=== PATIENT | female | born 1995 | race Caucasian/White ===

== ENCOUNTER 2017-11-23 07:55 | Day surgery (SDC) | payer OTHER ==
[~2017-11-23 07:55] MED LIST: Buffered Lidocaine 0.9% SYRIN* 5 ML/SYR SYRINGE INTRADERM ONE; Sodium Citrate/Citric Acid* 15 ML UDC PO ONE
[2017-11-23] MEDS ORDERED: Sodium Citrate/Citric Acid* 15 ML UDC ONE (08:07)
[2017-11-23] MEDS ORDERED: Buffered Lidocaine 0.9% SYRIN* 5 ML/SYR SYRINGE ONE (08:07)
[2017-11-23] MEDS ORDERED: Misoprostol TAB* 200 MCG ONE (08:48)
[2017-11-23] MEDS ORDERED: Lidocaine 1% INJ* 10 MG/ML 30 ML SDV ONE (09:15)
[2017-11-23] MEDS ORDERED: fentaNYL* 50 MCG/ML 2 ML VIAL (100 MCG VIAL) ONE ×2 (09:25→10:15)
[2017-11-23] MEDS ORDERED: Lidocaine 2% PF * 5 ML VIAL ONE (09:28)
[2017-11-23] MEDS ORDERED: Propofol* 10 MG/ML 20 ML BTL IV PUSH ONE (09:28)
[2017-11-23] MEDS ORDERED: Ondansetron INJ* 2 MG/ML VIAL IV PRN (10:14)
[2017-11-23] MEDS ORDERED: Naloxone* 0.4 MG/ML 1 ML VIAL IV PRN (10:14)
[2017-11-23] MEDS ORDERED: fentaNYL* 50 MCG/ML 2 ML VIAL (100 MCG VIAL) IV PRN (10:14)
[2017-11-23] MEDS ORDERED: Ibuprofen TAB* 600 MG ONE (10:21)
[2017-11-23 10:57] VITALS: BP 121/90
[2017-11-23] MEDS ORDERED: DOXYcycline CAP(*) 100 MG PO ONE (11:00)
--- NOTE | 2017-11-23 15:38 | OP ---
OPERATIVE REPORT: DATE OF OPERATION: 11/23/17 DATE OF : [birth year] SURGEON: Ana Cristina Tory MD DETACKER: None. ANESTHESIA: Sedation with local paracervical block. PRE-OP DIAGNOSIS: Missed at 7 weeks and 1 day. POST-OP DIAGNOSIS: Missed at 7 weeks and 1 day. OPERATIVE PROCEDURE: Dilation, evacuation and curettage. ESTIMATED BLOOD LOSS: Minimal. URINE OUTPUT: 100 cc of yellow urine. FLUIDS: 400 cc of crystalloid. FINDINGS: Reveals intrauterine contents consistent with productions of conception. COMPLICATIONS: None apparent. DISPOSITION: Stable to recovery room. DESCRIPTION OF PROCEDURE: The patient was counseled preoperatively regarding risks and benefits of t he procedure. Consent form was personally signed with the patient and all questions were answered. The patient was then taken to the operating room. In the operating room, the perineum and vagina were prepped and draped using sterile standard technique. The patient was identified with a Deaver pr otocol for correct procedure, patient, and position. A sterile self-cath was inserted for drainage o f clear yellow urine of 100 cc. This was removed. A sterile speculum was inserted. A paracervical block was used using 1% lidocaine 10 cc. Cervix was visualized, grasped on the anterior lip of the c ervix and dilated to #8 Rutledge dilator. An 8-mm curved suction curette was then applied for complete evacuation of intrauterine contents. A sharp curettage was then performed revealing complete removal of all intrauterine contents. The sterile speculum was removed as well as the single-tooth tenaculu m. Cytotec 800 mcg was placed intravaginally. All sponge, instrument, and blade counts were correct . The patient was taken to the recovery room in stable condition. [id number]/[facility] #: [id number]
== END 2017-11-23 10:58 | disposition home or self-care (01) ==
LOC: OR 07:55
PROVIDERS: ATTEND Obstetrics & Gynecology
DX: O02.1 Missed abortion (principal); F17.210 Nicotine dependence, cigarettes, uncomplicated
CPT/HCPCS: 88305; A9270-GY; J2704; J3010

== ENCOUNTER 2018-06-23 01:37 | Observation (INO) | payer OTHER ==
[2018-06-23] MEDS ORDERED: NS 0.9% 1000 ML* 1,000 ML IV ONE (01:53)
--- NOTE | 2018-06-23 01:57 | ED ---
Syncope/Near Syncope - HPI Summary HPI Summary: This patient is a 22 year old F brought in by ambulance to [facility] s/p syncopal episode that occurred [employer] while she was laying down with her boyfriend. The patient rates the pain 0/10 in severity. Pt states she has been having intermittent episodes of syncope since January of this year. Since January she has had 3 episodes of syncope. She had one last night and was seen at [facility], there she had a head CT that was negative. Before the episodes occur she gets a dizziness as well as some ringing in her ears. She states the episode tonight lasted for a few minutes. Tonight she also experienced numbness in her left hand. She has seen neurology as well as cardiology for these episodes and she has tried several different medications such as ones for anxiety and migraines, without relief. Patient denies incontinence and tongue biting. She states she has a prior dx of vasovagal syncope after being seen by cardiology when she was 18 y/o. - History Of Current Complaint Chief Complaint: EDSyncope Time Seen by Provider: 06/23/18 01:44 Hx Obtained From: Patient Onset/Duration: Lasting Minutes, Resolved Timing: Intermittent Episode Lasting Context: Witnessed Activity At Onset: At Rest Associated Head Trauma: No Associated Signs And Symptoms: Dizzy - Allergies/Home Medications Allergies/Adverse Reactions: Allergies Allergy/AdvReac Type Severity Reaction Status Date / Time latex Allergy Severe Hives Verified 11/23/17 08:12 amoxicillin [From Augmentin] AdvReac Intermediate Nausea And Verified 11/23/17 08:12 Vomiting clavulanic acid AdvReac Intermediate Nausea And Verified 11/23/17 08:12 [From Augmentin] Vomiting naproxen AdvReac Intermediate Nausea And Verified 11/23/17 08:12 Vomiting PMH/Surg Hx/FS Hx/Imm Hx Endocrine/Hematology History: Denies: Hx Blood Transfusions Cardiovascular History: Denies: Hx Peripheral Vascular Disease Respiratory History: Denies: Hx Chronic Bronchitis, Hx Chronic Obstructive Pulmonary Disease (COPD ), Hx Cystic Fibrosis Sensory History: Reports: Hx Contacts or Glasses Opthamlomology History: Reports: Hx Contacts or Glasses Neurological History: Denies: Hx Transient Ischemic Attacks (TIA) Psychiatric History: Reports: Hx Anxiety Infectious Disease History: No Infectious Disease History: Denies: Traveled Outside the [place] in Last 30 Days - Family History Known Family History: Negative: Respiratory Disease, Seizure Disorder - Social History Alcohol Use: None Substance Use Type: Reports: None Smoking Status (MU): Light Every Day Tobacco Smoker Type: Cigarettes Amount Used/How Often: 1 PACK EVERY 3-4 DAYS Length of Time of Smoking/Using Tobacco: 2.5 YEARS Have You Smoked in the Last Year: Yes Review of Systems Negative: Fever ENT: Negative - biting of the tongue Positive: Other - ears ringing Gastrointestinal: Negative - Incontinence Genitourinary: Negative - Incontinence Neurological: Other - dizziness Positive: Numbness - L hand , Syncope All Other Systems Reviewed And Are Negative: Yes Physical Exam - Summary Physical Exam Summary: VITAL SIGNS: Reviewed. GENERAL: Patient is a well-developed and nourished female who is lying comfortable in the stretcher. Patient is not in any acute respiratory distress. HEAD AND FACE: No signs of trauma. No ecchymosis, hematomas or skull depressions. No sinus tenderness. EYES: PERRLA, EOMI x 2, No injected conjunctiva, no nystagmus. EARS: Hearing grossly intact. Ear canals and tympanic membranes are within normal limits. MOUTH: Oropharynx within normal limits. NECK: Supple, trachea is midline, no adenopathy, no JVD, no carotid bruit, no c- spine tenderness, neck with full ROM. CHEST: Symmetric, no tenderness at palpation LUNGS: Clear to auscultation bilaterally. No wheezing or crackles. CVS: Regular rate and rhythm, S1 and S2 present, no murmurs or gallops appreciated. ABDOMEN: Soft, non-tender. No signs of distention. No rebound no guarding, and no masses palpated. Bowel sounds are normal. EXTREMITIES: FROM in all major joints, no edema, no cyanosis or clubbing. NEURO: Alert and oriented x 3. No acute neurological deficits. Speech is normal and follows commands. SKIN: Dry and warm Triage Information Reviewed: Yes Vital Signs On Initial Exam: Initial Vitals Temp Pulse Resp BP Pulse Ox 98.0 F 68 15 135/78 97 06/23/18 01:38 06/23/18 01:38 06/23/18 01:38 06/23/18 01:38 06/23/18 01:38 Vital Signs Reviewed: Yes Diagnostics - Vital Signs Vital Signs Temp Pulse Resp BP Pulse Ox 06/23/18 01:38 98.0 F 68 15 135/78 97 - Laboratory Result Diagrams: 06/23/18 02:15 06/23/18 02:15 Lab Statement: Any lab studies that have been ordered have been reviewed, and results considered in the medical decision making process. - EKG 0211 Cardiac Rate: NL EKG Rhythm: Sinus Rhythm - at 68 BPM Summary of EKG Findings: nml axis, nml intervals, no ischemic changes Course/Dx Course Of Treatment: This patient is a 22 year old F brought in by ambulance to [facility] s/p syncopal episode that occurred [employer] while she was laying down with her boyfriend. The patient rates the pain 0/10 in severity. Pt states she has been having intermittent episodes of syncope since January of this year. Since January she has had 3 episodes of syncope. She had one last night and was seen at [facility], there she had a head CT that was negative. Before the episodes occur she gets a dizziness as well as some ringing in her ears. She states the episode tonight lasted for a few minutes. Tonight she also experienced numbness in her left hand. She has seen neurology as well as cardiology for these episodes and she has tried several different medications such as ones for anxiety and migraines, without relief. Patient denies incontinence and tongue biting. She states she has a prior dx of vasovagal syncope after being seen by cardiology when she was 18 y/o. UA and bloodwork obtained. Bloodwork showed troponin of 0.05. Pt had no CP it could be due to a malignant arrhythmia this also could cause syncope. We discussed the case with Dr. Moore and she has agreed to admit the patient - Diagnoses Provider Diagnoses: Syncope - Physician Notifications Discussed Care of Patient With: Leandra Moore Time Discussed With Above Provider: 03:00 Instructed by Provider To: Admit As Inpatient Discharge - Sign-Out/Discharge Documenting (check all that apply): Patient Departure - admitted - Discharge Plan Condition: Fair Disposition: ADMITTED TO [facility] Referrals: No Primary Care Phys,NOPCP [Primary Care Provider] - - Attestation Statements Document Initiated by Scribe: Yes Documenting Scribe: Terrance Hill Provider For Whom Elizaibe is Documenting (Include Credential): Edgar Topete MD Scribe Attestation: Terrance Dumas , elizaibed for Edgar Topete MD on 06/23/18 at 0300.
[2018-06-23 02:27] LABS: ABS Basophils 0 10^3/ul (0-0.2); ABS Eosinophils 0.1 10^3/ul (0-0.6); ABS Lymphocytes 2.3 10^3/ul (1.0-4.8); ABS Monocytes 0.6 10^3/ul (0-0.8); ABS Neutrophils 4.7 10^3/ul (1.5-7.7); ABS Nucleated RBC 0 10^3/ul; Eosinophil % 1.3 % (0-6); Hematocrit 38 % (35-47); Hemoglobin 12.7 g/dl (12.0-16.0); Lymphocyte % 30.1 % (25-47); Mean Corpuscular HGB Conc 34 g/dl (31-36); Mean Corpuscular Hemoglobin 30 pg (27-31); Mean Corpuscular Volume 89 fL (80-97); Mean Platelet Volume 10.4 fL (7.4-10.4); Nucleated Red Blood Cells % 0.1; Platelet Count 163 10^3/ul (150-450); Red Blood Count 4.26 10^6/ul (4.00-5.40); Red Cell Distribution Width 13 % (10.5-15); White Blood Count 7.8 10^3/ul (3.5-10.8)
[2018-06-23 02:44] LABS: EGFR Non-African American 112.2 (>60)
[2018-06-23 03:00] LABS: Urine Appearance Clear; Urine Blood 2+ (Negative); Urine Color Straw; Urine Ketones Trace (Negative); Urine Protein Negative (Negative); Urine Red Blood Cell 1+(3-5/hpf) (Absent); Urine Specific Gravity 1.008 (1.010-1.030); Urine Urobilinogen Negative (Negative); Urine White Blood Cell Trace(0-5/hpf) (Absent)
--- NOTE | 2018-06-23 03:12 | ADMNOTE ---
Subjective Date of Service: 06/23/18 Interval History: code status full this is admission h/p hpi 22 yr old wf with hx of vasovagal syncope at age [age] was brought in by boyfriend because of chest pain and intermittant near loc tonight. pt stated that she woke up at 1200 am with left side chest pain around her collar bone then radiating down to her elbow/wrist. her ears first flipped plugged then only her right ear started to ring---> then she had numbness in her tongue and throat. chest pain described as sharp but later became numbness. this whole episode lasted about 15 min. boyfriend also found she had intermittant change of mental status for about total duration about 10 m in. boyfriend would wake her up and ask her " how are you ?" but pt would wake up and replied " i dont feel well " then became hard to arouse for the following 1-2 min---> then woke up and said " i dont feel well " then went back to her hard to arouse state. multiple episodes occurred during this 10 min which prompted the boyfriend to bring her in for eval. pt STATED THAT SHE DID NOT LOSE HER CONSCIOUSNESS AT ALL AND COULD HEAR HER BOYFRIEND QUESTIONING BUT JUST STRONG ENOUGH TO RESPOND. [facility] " [facility]ope " 06/22 after she had lightheadness and nauseated after work at 8 30 pm---> had complete workup/head ct ---> all neg then d/cd home pt did have hx of vasovagal syncope at age of 18 but lasted until age 19 ( was eval by a local cardio back then ) she had one preg but had d&c 2018 currently has her mentral period phx anxiety on prn atarax 50 mg daily prn chronic left shouler pain with hx of slip fall and landed on the left shoulder 1.5 yrs ago cig one pack every other day pshx d&c 2018 s/p tonsilectomy s/p left mn tear repair social hx cig as above no etoh no 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 and lives with her boyfriend one preg but had d&c 2018 ---> fhx htn Review of Systems - Measurements Intake and Output: Intake and Output Last 24 Hours 06/20/18 06/21/18 06/22/18 06/23/18 06:59 06:59 06:59 06:59 Intake Total 1000 Balance 1000 Weight 145 lb Intake: IV Fluids 1000 - Review of Systems General Comments: pertinent as per hpi Objective Active Medications: Sodium Chloride (Ns 0.9% 1000 Ml*) 1,000 mls @ 125 mls/hr IV PER RATE ANDERSON Vital Signs - 8 hr 06/23/18 06/23/18 06/23/18 01:38 02:02 02:03 Temperature 98.0 F Pulse Rate 68 68 72 Respiratory 15 Rate Blood Pressure 135/78 131/85 126/81 (mmHg) O2 Sat by Pulse 97 Oximetry 06/23/18 02:04 Temperature Pulse Rate 74 Respiratory Rate Blood Pressure 132/95 (mmHg) O2 Sat by Pulse Oximetry Oxygen Devices in Use Now: None Appearance: nad Eyes: No Scleral Icterus, PERRLA Ears/Nose/Mouth/Throat: NL Teeth, Lips, Gums, Clear Oropharnyx, Mucous Membranes Moist, - - b/l tympanic membrane intact Neck: NL Appearance and Movements; NL JVP, Trachea Midline, No Thyroid Enlargement, Masses Respiratory: Symmetrical Chest Expansion and Respiratory Effort, Clear to Auscultation Cardiovascular: NL Sounds; No Murmurs; No JVD, RRR Abdominal: NL Sounds; No Tenderness; No Distention Extremities: No Edema, - - no gross limit rom seen on all four exts Skin: No Rash or Ulcers Neurological: Alert and Oriented x 3, NL Sensation, NL Muscle Strength and Tone Result Diagrams: 06/23/18 02:15 06/23/18 02:15 EKG Data: ns no acute st t change Assess/Plan/Problems-Billing Assessment: this is a 22 yr old wf with hx of vasovagal syncope from age [age] presented with 15 min duration of chest pain started from left collar bone radiating down to left elbow and wrist with some numbness in the tongue/throat followed by intermittant nearsyncope ( while in bed ) witnessed by boyfriend nessa episodes for about total 10 min pt went to [facility] after lightheadness complicated with nausea 8 30 pm 06/22 and had complete neg workup ( including head ct ) ---> d/cd home from er - Patient Problems (1) Atypical chest pain Current Visit: Yes Status: Acute Code(s): R07.89 - OTHER CHEST PAIN SNOMED Code(s): 742867040 Comment: tele with ronald/ekg echo in am (2) Near syncope Current Visit: Yes Status: Acute Comment: pt works as a food checkers and cashiers supervisor and could be vasovagal due to sig venous pooling afterwork d/w her and boyfriend the need of adequate po intake daily and elevate legs at night when sleep will ck her orthostatic vital at 8 am urine toxin just in case (3) Anxiety Current Visit: Yes Status: Acute Code(s): F41.9 - ANXIETY DISORDER, UNSPECIFIED SNOMED Code(s): 10998838 Comment: on prn daily atarax pt is not anxious will continue outpt meds (4) Cigar smoker Current Visit: Yes Status: Acute Code(s): F17.290 - NICOTINE DEPENDENCE, OTHER TOBACCO PRODUCT, UNCOMPLICATED SNOMED Code(s): 09064328 (5) Cigarette smoker Current Visit: Yes Status: Acute Code(s): F17.210 - NICOTINE DEPENDENCE, CIGARETTES, UNCOMPLICATED SNOMED Code(s): 42169208 Comment: supportive care for now
[2018-06-23] MEDS ORDERED: Ondansetron INJ* 2 MG/ML VIAL IV ONE (04:03)
[2018-06-23] MEDS: NS 0.9% 1000 ML* 1,000 ML IV SCH ×2 (04:34→12:51)
[2018-06-23 06:54] LABS: ABS Basophils 0 10^3/ul (0-0.2); ABS Eosinophils 0.1 10^3/ul (0-0.6); ABS Lymphocytes 1.9 10^3/ul (1.0-4.8); ABS Monocytes 0.5 10^3/ul (0-0.8); ABS Nucleated RBC 0 10^3/ul; Eosinophil % 1.1 % (0-6); Hematocrit 35 % (35-47); Hemoglobin 11.9 g/dl (12.0-16.0); Mean Corpuscular HGB Conc 34 g/dl (31-36); Mean Corpuscular Hemoglobin 30 pg (27-31); Mean Corpuscular Volume 88 fL (80-97); Mean Platelet Volume 10.6 fL (7.4-10.4); Nucleated Red Blood Cells % 0.1; Platelet Count 135 10^3/ul (150-450); Red Blood Count 3.97 10^6/ul (4.00-5.40); Red Cell Distribution Width 13 % (10.5-15); White Blood Count 6.5 10^3/ul (3.5-10.8)
--- NOTE | 2018-06-23 09:56 | ECHO ---
Patient: ALTON JANE [facility] Rec#: [id number] : 1995 Date: 06/23/2018 Age: 22y Height: 163 cm / 64.2 in Weight: 65.77 kg / 145.0 lbs Sex: F BSA: 1.71 Room#: [facility] Admit Date#: 06/23/2018 Type: Inpatient Referring: Leandra Moore Reading: Elsy Ahn MD Handkerchief Folder: [facility] Transthoracic Echocardiogram Indication: Syncope BP: 117/75 HR: 53 Rhythm: Bradycardia Findings History: Smoker, several syncopal episodes. Technical Comments: The study quality is good. Completed at 0815. Left Ventricle: The left ventricular chamber size is normal. There is no left ventricular hypertrophy. Global left ventricular wall motion and contractility are within normal limits. There is normal left ventricular systolic function. The estimated ejection fraction is 50-55%. Normal left ventricular diastolic filling is observed. Left Atrium: The left atrial chamber size is normal. Right Ventricle: Moderator Band present. The right ventricular cavity size is normal. The right ventricular global systolic function is low normal. Right Atrium: The right atrial cavity size is normal. Aortic Valve: The aortic valve is trileaflet. There is no evidence of aortic valve thickening. There is no evidence of aortic regurgitation. There is no evidence of aortic stenosis. Mitral Valve: The mitral valve leaflets do not appear thickened. There is no evidence of mitral regurgitation. There is no evidence of mitral stenosis. Tricuspid Valve: The tricuspid valve leaflets are normal. There is mild tricuspid regurgitation. Unable to estimate the right ventricular systolic pressure. There is no tricuspid stenosis. Pulmonic Valve: The pulmonic valve structure is not well visualized. There is mild to moderate pulmonic regurgitation. jet not lined up with valve. There is no pulmonic stenosis. Pericardium: There is no significant pericardial effusion. Aorta: There is no dilatation of the ascending aorta. There is no dilatation of the aortic arch. The aortic root is normal in size. Pulmonary Artery: The main pulmonary artery appears normal. Venous: The inferior vena cava appears normal in size. There is less than 50% respiratory change in the inferior vena cava dimension. Conclusions The left ventricular chamber size is normal. Global left ventricular wall motion and contractility are within normal limits. The estimated ejection fraction is 50-55%. Normal left ventricular diastolic filling is observed. The right ventricular global systolic function is low normal. There is mild tricuspid regurgitation. There is mild to moderate pulmonic regurgitation. jet not lined up with valve. Unable to estimate the right ventricular systolic pressure. No prior echo to compare. Measurements Name Value Normal Range RVIDd (AP) 2D 3 cm (0.9 - 2.6) RVDdMajor (2D) 3.7 cm (2.2 - 4.4) RAd ISD 4CH 4 cm (3.4 - 4.9) RA (A4C)W 3.9 cm (2.9 - 4.6) IVSd (2D) 0.6 cm (0.6 - 1) LVPWd (2D) 0.7 cm (0.6 - 1) LVIDd (2D) 3.9 cm (3.6 - 5.4) LVIDs (2D) 2.7 cm - LV FS (2D) 32 % (25 - 45) Aortic Annulus 1.6 cm (1.4 - 2.6) Ao root diameter (2D) 2.6 cm (2.1 - 3.5) Ascending Ao 2.2 cm (2.1 - 3.4) Aortic arch 1.8 cm (1.8 - 3.4) LA dimension (AP) 2D 2.7 cm (2.3 - 3.8) LAd ISD 4CH 3.9 cm (2.9 - 5.3) LA ISD 4CH W 3.4 cm (2.5 - 4.5) Name Value Normal Range LA ESV BP (A/L) index 13 ml/m2 - Name Value Normal Range MV E-wave Vmax 0.9 m/sec - MV deceleration time 180 msec - MV A-wave Vmax 0.5 m/sec - MV E:A ratio 1.7 ratio - LV septal e' Vmax 0.12 m/sec - LV lateral e' Vmax 0.14 m/sec - LV E:e' septal ratio 7.5 ratio - LV E:e' lateral ratio 6.43 ratio - Name Value Normal Range AV Vmax 1.2 m/sec - AV VTI 22.3 cm - AV peak gradient 6 mmHg - AV mean gradient 2 mmHg - LVOT Vmax 0.9 m/sec - LVOT VTI 18.2 cm - LVOT peak gradient 3 mmHg - LVOT mean gradient 2 mmHg - VALDEZ Vmax 0.9 m/sec - Name Value Normal Range IVC diameter 1.7 cm - Name Value Normal Range PV Vmax 0.8 m/sec - PV peak gradient 3 mmHg -
[2018-06-23 13:20] VITALS: BP 114/74
--- NOTE | 2018-06-24 14:06 | DS ---
CC: Ronald Daly NP* DISCHARGE SUMMARY: DATE OF ADMISSION: 06/23/18 DATE OF DISCHARGE: 06/23/18 PRIMARY CARE PROVIDER: Ronald Daly NP ATTENDING PHYSICIAN: Dr. Ivonne Magaña* (dictated by Babita Singh NP). PRIMARY DIAGNOSES: 1. Atypical chest pain. 2. Near syncope. SECONDARY DIAGNOSES: 1. Anxiety. 2. Nicotine dependence. STUDIES WHILE IN THE HOSPITAL: 1. EKG on 06/23/18, shows normal sinus rhythm with a rate of 68. No ischemic changes. 2. Shoulder x-ray on 06/23/18, reads as no fracture of the left shoulder. 3. Transthoracic echocardiogram on 06/23/18, reads as the left ventricular chamber size is normal. Global left ventricular wall motion and contractility are within normal limits. The estimated ejection fraction is 50% to 55%. Normal left ventricular diastolic filling is observed. The right ventricular global systolic function is low normal. There is mild tricuspid regurgitation, [id number] pulmonic regurgitation, jet not lined up with valve, unable to estimate the right ventricular systolic pressure. No prior echo for comparison. 4. EKG on 06/23/18, shows normal sinus rhythm with a rate of 78. No ischemic changes are noted. 5. Nuclear exercise stress test on 06/23/18, reads as no definite fixed or reversible perfusion defects. There is a small reversible defect along the anterior wall on the polar map, which is likely artifactual. Assessment is low risk. HISTORY OF PRESENT ILLNESS AND HOSPITAL COURSE: Ms. Dorsey is a 22-year-old female with past medical history of anxiety and vasovagal syncope approximately 3 or 4 years ago, who presented to the emergency room on 06/23/18, with complaints of left-sided chest pain and near syncope. Please see the history and physical by Dr. Moore for complete summary of the events leading up to this hospitalization. In short, the patient woke up during the night with left- sided chest pain radiating to her elbow and wrist. She had associated numbness in her tongue and throat. The pain lasted about 15 minutes. Her boyfriend noted that she had an intermittent change of mental status for about 10 minutes. He felt as though she was difficult to arouse. She reports that she was awake during this episode and could hear her boyfriend talking to her, but did not feel strong enough to respond. I will also note that she went to [facility] on 06/22/18 for light headedness and nausea. She had a negative work up and was discharged home. She did have an episode of vasovagal syncope at the age of 18 and was evaluated by a gas appliance mechanic at that point, with no known findings. She was admitted by the hospitalist service. The patient reports a short episode of sternal chest pain once arriving to the floor , which she was able to sleep through. Troponins were 0.05, 0.04, and 0.04. She had no chest pain this morning. She did complain of dizziness, though notes that she has had chronic dizziness for approximately 6 months and has been working this up with her PCP. Her vital signs were stable and she was not orthostatic. Echo results are also noted above. I spoke with Cardiology regarding her case, and they recommended a nuclear exercise stress test. Results of that are noted above. The patient's workup has been essentially benign and it is unclear what caused her chest pain and near syncope. I suspect that these problems may be related to her anxiety, though at this point we can rule out a cardiac cause due to her normal echocardiogram and normal stress test. Her troponins have been borderline elevated, the exact cause is unknown, though as previously mentioned her cardiac work up was negative and she has had no further chest pain during the day today. Ms. Dorsey is stable for discharge today. Vital signs are as follows: Temp 98.2, heart rate 69, respiratory rate 17, oxygen saturation 99% on room air, blood pressure 114/74. DISCHARGE MEDICATIONS: Continued home medications: 1. Hydroxyzine 50 mg p.o. daily p.r.n. anxiety. 2. Ibuprofen 600 mg p.o. q.8 hours p.r.n. pain. DISCHARGE PLAN: Ms. Dorsey will be discharged to home. Activity will be as tolerated. Diet will be regular as tolerated. She can resume her normal medications and has not been sent with any new prescriptions. She will need to follow up with her PCP in 4 to 7 days. At that point, her PCP can determine if she will require any further workup for dizziness or any additional episodes of chest pain. She has been instructed to return to the emergency room or nearest hospital for any worsening of symptoms, shortness of breath, persistent lightheadedness or dizziness, persistent chest discomfort, high fevers, chills, night sweats, loss of consciousness, or any worrisome signs or symptoms. This is a summarized report of a complex medical history and hospital stay. For further details, please see the entire medical record. TIME SPENT: Approximately 40 minutes was spent on this discharge, greater than half of that time spent [id number] with the patient discussing discharge plans and instructions. BABITA SINGH, STAFF PHYSICAL THERAPY ASSISTANT [id number]/[facility] #: [id number] [facility]
== END 2018-06-23 17:40 | disposition home or self-care (01) ==
LOC: ED 01:37 → MED 03:18
PROVIDERS: ADMIT Internal Medicine; ATTEND Internal Medicine
DX: R07.89 Other chest pain (principal); R55 Syncope and collapse; F41.9 Anxiety disorder, unspecified; F17.210 Nicotine dependence, cigarettes, uncomplicated; F17.290 Nicotine dependence, other tobacco product, uncomplicated; R42 Dizziness and giddiness; R11.2 Nausea with vomiting, unspecified
CPT/HCPCS: 36415; 78452; 80048; 80053; 80307; 81003; 81015; 82550; 83605; 83735; 84439; 84443; 84484; 84702; 85025; 87086; 93005; 93017; 93306; 96361; 96374; 99283; A9502; G0378; J2405